=== PATIENT | male | born 1970 | race African-American/Black ===

== ENCOUNTER → 2021-01-09 11:36 | Outpatient (BNVA) | payer SELFPAY | PROVIDERS: Visit Provider Physician Assistant Medical | DX: Z02.79 Encounter for issue of other medical certificate (principal) ==

== ENCOUNTER → 2022-04-05 09:43 | Outpatient (BNVA) | payer SELFPAY | PROVIDERS: Visit Provider Physician Assistant Medical | DX: Z02.79 Encounter for issue of other medical certificate (principal) ==